=== PATIENT | female | born 2000 ===

== ENCOUNTER 2024-01-18 18:23 | Emergency (ER) | payer SELFPAY ==
[2024-01-18 18:24] VITALS: BP 120/92; PULSE 127; RESP 18; TEMP 36.8; O2SAT 99; BMI 57.1
== END 2024-01-18 19:55 | disposition left against medical advice (07) ==
LOC: ED 21:11
DX: Z53.21 Procedure and treatment not carried out due to patient leaving prior to being seen by health care provider (principal)